=== PATIENT | male | born 1995 | race Caucasian/White ===

== ENCOUNTER 2018-11-17 16:49 | Emergency (ER) | payer OTHER, BC ==
[~2018-11-17] VITALS: Ht 185.4 cm; Wt 79.4 kg
[~2018-11-17 16:49] MED LIST: fentaNYL INJECTION 100 MCG/2 ML AMP ONE
[2018-11-17] MEDS ORDERED: LIDOCAINE 1% INJ 20 ML 20 ML VIAL INJ ONE ×2 (17:00)
[2018-11-17] MEDS ORDERED: CLINDAMYCIN 900 MG/50 ML IVPB 50 ML IV ONE (17:00)
[2018-11-17] MEDS ORDERED: fentaNYL INJECTION 100 MCG/2 ML AMP IVP ONE ×2 (17:00→18:30)
--- NOTE | 2018-11-17 17:05 | NUR ---
Xylocaine used by Dr. Freedman for digital block on 3 fingers.
[2018-11-17] MEDS ORDERED: LACTATED RINGERS 1,000 ML IV ONE ×2 (17:16→17:21)
--- NOTE | 2018-11-17 17:40 | ED Upper Extremity ---
General Chief Complaint: Upper Extremity Stated Complaint: L HAND INJ Nursing Triage Note: PT ARRIVED POV WITH INJURY TO LEFT HAND. PT STATES HE HAD HIS HAND STUCK IN A SET OF ROLLERS AT WORK. Nursing Sepsis Screen: No Definite Risk Source: patient Exam Limitations: no limitations History of Present Illness Date Seen by Provider: Nov 17, 2018 Time Seen by Provider: 16:50 Initial Comments This 23-year-old young man is brought to the emergency room by a coworker with degloving injury of the second, third and fourth fingertips on the left. P marck was using a machine with a roller and his fingers were caught in the roller. Degloving occurred when he pulled his hand back from the roller. There is complete avulsion of the fingertips and fingernails of these 3 fingers but the bony structures are intact. The ap of the distal phalanx are exposed. Onset: just prior to arrival Allergies and Home Medications Allergies Coded Allergies: No Known Drug Allergies (Unverified , 11/17/18) Home Medications Ondansetron 4 Mg Tab.rapdis, 4 MG SL Q4H PRN for NAUSEA/VOMITING-1ST LINE Prescribed by: EMILEE COSTA on 11/17/181828 Oxycodone HCl/Acetaminophen 1 Each Tablet, 0.5-2 TAB PO Q4H PRN for PAIN- MODERATE Prescribed by: EMILEE COSTA on 11/17/181828 Sulfamethoxazole/Trimethoprim 1 Each Tablet, 1 EACH PO BID Prescribed by: EMILEE COSTA on 11/17/181828 Patient Home Medication List Home Medication List Reviewed: Yes Review of Systems Constitutional: no symptoms reported EENTM: no symptoms reported Respiratory: no symptoms reported Cardiovascular: no symptoms reported Gastrointestinal: no symptoms reported Genitourinary: no symptoms reported Musculoskeletal: see HPI Skin: see HPI Psychiatric/Neurological: No Symptoms Reported Past Wslqstu-Xrppvx-Fdqwty Hx Past Med/Social Hx: Reviewed Nursing Past Med/Soc Hx Patient Social History Alcohol Use: Occasionally Uses Alcohol Beverage of Choice: Beer Recreational Drug Use: No Smoking Status: Current Everyday Smoker Type Used: Cigars 2nd Hand Smoke Exposure: Yes Recent Foreign Travel: No Contact w/Someone Who Travel: No Recent Infectious Disease Expo: No Recent Hopitalizations: No Physical Abuse: No Sexual Abuse: No Mistreated: No Fear: No Seasonal Allergies Seasonal Allergies: No Past Medical History Surgeries: Yes (WISDOM TEETH REMOVAL) Respiratory: No Cardiac: No Neurological: No Genitourinary: No Gastrointestinal: No Musculoskeletal: No Endocrine: No HEENT: No Cancer: No Psychosocial: No Integumentary: No Blood Disorders: No Physical Exam Vital Signs Vital Signs - First Documented 11/17/18 16:55 Temp 98.7 Pulse 79 Resp 18 B/P (MAP) 140/96 (111) Pulse Ox 100 O2 Delivery Room Air Capillary Refill : Less Than 3 Seconds Height, Weight, BMI Height: 6'1.00" Weight: 175lbs. oz. 79.687206vr; BMI Method:Stated General Appearance: WD/WN, mild distress HEENT: PERRL/EOMI, normal ENT inspection Neck: normal inspection Cardiovascular: regular rate, rhythm, no edema, no murmur Respiratory: lungs clear, normal breath sounds, no respiratory distress Shoulder: normal inspection, no evidence of injury Elbow/Forearm: normal inspection, no evidence of injury Wrist: Yes normal inspection, Yes no evidence of injury Hand: Left (There is complete degloving of the skin and nails of the second, third, and fourth fingertips on the left hand. The bony tuft's are exposed. There is oozing of blood without hemorrhage.) Neurologic/Psychiatric: transfer and line up worker II-XII nml as tested, no motor/sensory deficits, alert, normal mood/affect, oriented x 3 Skin: normal color, warm/dry Progress/Results/Core Measures Results/Orders My Orders Orders - EMILEE HENDERSON MD Fentanyl Injection (Sublimaze Injection (11/17/18 16:47) Hand, Left, 3 Views (11/17/18 16:54) Ed Iv/Invasive Line Start (11/17/18 16:54) Fentanyl Injection (Sublimaze Injection (11/17/18 17:00) Lidocaine 1% Inj 20 Ml (Xylocaine 1% Inj (11/17/18 17:00) Lidocaine 1% Inj 20 Ml (Xylocaine 1% Inj (11/17/18 17:00) Clindamycin 900 Mg/50 Ml Ivpb (Cleocin P (11/17/18 17:00) Ed Iv/Invasive Line Start (11/17/18 17:21) Lactated Ringers (Lr 1000 Ml Iv Solution (11/17/18 17:21) Lactated Ringers (Lr 1000 Ml Iv Solution (11/17/18 17:16) Fentanyl Injection (Sublimaze Injection (11/17/18 18:30) Oxycodone/Apap 5/325mg Tablet (Percocet (11/17/18 18:30) Medications Given in ED Current Medications Medications Dose Ordered Sig/Ines Route Start Time Stop Time Status Last Admin Dose Admin Clindamycin Phosphate/Dextrose 50 ml @ 100 mls/hr ONCE ONCE IV 11/17/18 17:00 11/17/18 17:29 DC 11/17/18 17:28 100 MLS/HR Fentanyl Citrate 100 mcg ONCE ONCE IVP 11/17/18 17:00 11/17/18 17:01 DC 11/17/18 17:00 100 MCG Fentanyl Citrate 100 mcg ONCE ONCE IVP 11/17/18 18:30 11/17/18 18:31 DC 11/17/18 18:51 100 MCG Lactated Ringer's 1,000 ml @ 0 mls/hr Q0M ONCE IV 11/17/18 17:21 11/17/18 17:23 DC 11/17/18 17:29 999 MLS/HR Lidocaine HCl 20 ml ONCE ONCE INJ 11/17/18 17:00 11/17/18 17:01 DC 11/17/18 17:04 20 ML Lidocaine HCl 20 ml ONCE ONCE INJ 11/17/18 17:00 11/17/18 17:01 DC 11/17/18 17:05 20 ML Oxycodone/ Acetaminophen 1 tab ONCE ONCE PO 11/17/18 18:30 11/17/18 18:31 DC 11/17/18 18:51 1 TAB Vital Signs/I&O 11/17/18 11/17/18 16:55 17:00 Temp 98.7 98.7 Pulse 79 Resp 18 B/P (MAP) 140/96 (111) Pulse Ox 100 O2 Delivery Room Air Blood Pressure Mean: 111 Progress Progress Note : Time: 17:35 Progress Note Patient has experienced a degloving of the tips of fingers 2 through 4 on the left hand. There is a complete nail avulsion with each of these fingers. Clindamycin 900 mg IV was administered for infection prophylaxis. Pain was treated with fentanyl 100 g. Digital block was performed on each of the fingers. Approximately 3 mL of lidocaine was used to block each finger and fin gertips were also sprayed with lidocaine. Patient is up-to-date on his tetanus immunization. Case was discussed with Dr. Jacobo, orthopedist director television. He declined to accept this case and recommended referral to a hand surgeon. A message was left with Dr. Barnett was not immediately available. Case was then discussed with Dr. Fitzgerald at [facility]. He was hesitant to accept the case due to questionable work comp coverage. Family requested that we check with [facility] as that is their preferred provider through their insurance. [facility] in [place] did not have a hand surgeon on-call. Dr. Barnett then returned my call and graciously accepted this case. Although patient brings the degloving tissue, it is not viable due to the crash nature of the injury. It cannot be reattached. He recommended antibiotic prophylaxis, pain control, and a dressing with follow-up in the clinic tomorrow at 10:00 anticipating surgery around noon. X-ray was obtained showing no fracture. Patient completed his antibiotics. He was redosed with fentanyl and Percocet prior to irrigating and dressing the fingertips. Fingertips were irrigated with 500 mL of normal saline and chlorhexidine soap. There is a small arterial bleeding on the second finger. This was controlled with hemostat and Gelfoam. Fingers were wrapped with Xeroform and gauze. See discharge instructions. Dr. Barnett's assistance is greatly appreciated. Diagnostic Imaging Diagonstic Imaging: Xray Plain Films/CT/US/NM/MRI: hand Comments Hand x-ray viewed by me and report reviewed. See report below: NAME: [facility] REC#: [id number] PT STATUS: REG ER : 1995 PHYSICIAN: EMILEE HENDERSON MD ADMIT DATE: 11/17/18/ER Signed Date of Exam: 11/17/18 HAND, LEFT, 3 VIEWS INDICATION: Left hand injury at work. TIME OF EXAM: 5:42 PM FINDINGS: Three views left hand were obtained. The distal radius and ulna are intact. Carpus appears intact. Phalanges are unremarkable. No fractures are seen. IMPRESSION: No acute bony abnormality is detected. Dictated by: Dictated on workstation # [id number] Dict: 11/17/181747 Trans: 11/17/181858 Interpreted by: BARRY GARCÍA MD Electronically signed by: BARRY GARCÍA MD 11/17/181858 Departure Impression Primary Impression: Degloving injury of finger Qualified Codes: S61.209A - Unspecified open wound of unspecified finger without damage to nail, initial encounter Disposition: 01 HOME, SELF-CARE Condition: Improved Departure-Patient Inst. Decision time for Depature: 19:32 Referrals: BHAVYA BARNETT DO UNKNOWN (PCP) Primary Care Physician Patient Instructions: NO INSTRUCTIONS GIVEN Add. Discharge Instructions: Keep the dressing intact, clean, and dry. Elevate to the level of your heart is much as possible to reduce pain, swelling, and bleeding. Use Percocet as prescribed for pain management. Start Bactrim DS this evening. Take another dose tomorrow prior to follow-up with Dr. Barnett. Have only a clear liquid diet which would include broth, Jell-O, juice, etc. after midnight. Then have nothing to eat or drink after 05:00 in the morning. It would be stark to take a dose of pain medication as close to 050:00 as possible. Follow-up with Dr. Barnett in his office at 10:00. Anticipate surgery after that. All discharge instructions reviewed with patient and/or family. Voiced understanding. Scripts Ondansetron (Ondansetron Odt) 4 Mg Tab.rapdis 4 MG SL Q4H PRN for NAUSEA/VOMITING-1ST LINE, #10 TAB Prov: EMILEE HENDERSON MD 11/17/18 Sulfamethoxazole/Trimethoprim (Bactrim Ds Tablet) 1 Each Tablet 1 EACH PO BID, #20 TAB Prov: EMILEE HENDERSON MD 11/17/18 Oxycodone HCl/Acetaminophen (Percocet 10-325 mg Tablet) 1 Each Tablet 0.5-2 TAB PO Q4H PRN for PAIN-MODERATE MDD 3 TABS, #20 TAB Prov: EMILEE HENDERSON MD 11/17/18 Copy Copies To 1: BHAVYA BARNETT JOSHUA T MD Nov 17, 2018 17:40
--- NOTE | 2018-11-17 17:54 | Diagnostic Imaging Report ---
INDICATION: Left hand injury at work. TIME OF EXAM: 5:42 PM FINDINGS: Three views left hand were obtained. The distal radius and ulna are intact. Carpus appears intact. Phalanges are unremarkable. No fractures are seen. IMPRESSION: No acute bony abnormality is detected. Dictated by: Dictated on workstation # [id number]
[2018-11-17] MEDS ORDERED: ONDA4TAB11 SL (18:29)
[2018-11-17] MEDS ORDERED: SULF1TAB35 PO (18:29)
[2018-11-17] MEDS ORDERED: OXYC1TAB12 PO (18:29)
[2018-11-17] MEDS ORDERED: oxyCODONE/APAP 5/325MG (PERCOCET 5) TABLET PO ONE (18:30)
--- NOTE | 2018-11-17 18:50 | NUR ---
Report taken from TESHA Trinidad to resume care.
[2018-11-17 19:48] VITALS: BP 115/100
== END 2018-11-17 19:48 | disposition home or self-care (01) ==
LOC: ER 16:50
DX: S61.301A Unspecified open wound of left index finger with damage to nail, initial encounter (principal); S61.303A Unspecified open wound of left middle finger with damage to nail, initial encounter; S61.305A Unspecified open wound of left ring finger with damage to nail, initial encounter; F17.290 Nicotine dependence, other tobacco product, uncomplicated; W31.89XA Contact with other specified machinery, initial encounter
CPT/HCPCS: 73130